=== PATIENT | female | born 1990 | race African-American/Black ===

== ENCOUNTER 2021-03-03 10:15 | Inpatient (IN) | payer BC, OTHER ==
[2021-03-03] MEDS ORDERED: LABETALOL HCL 200 MG TABLET (FP) ONE (13:52)
[2021-03-03 14:14] VITALS: BMI 48.0
[2021-03-03] MEDS ORDERED: ELECTROLYTE-148 SOLN 500 ML IV ONE ×2 (14:36→14:39)
[2021-03-03] MEDS ORDERED: CITRIC ACID/SODIUM CITRATE 30 ML UNIT-DOSE CUP PO ONE ×2 (14:36→14:38)
[2021-03-03] MEDS ORDERED: LABETALOL HCL 200 MG TABLET (FP) PO ONE (14:44)
[2021-03-03] MEDS ORDERED: ELECTROLYTE-148 SOLN 1,000 ML IV SCH (14:45)
[2021-03-03] MEDS ORDERED: morphine SULFATE/PF 0.5 MG/ML (2cc Syringe - QUVA) ONE (15:45)
[2021-03-03] MEDS ORDERED: ePHEDrine SULFATE 50 MG/1 ML AMPULE ONE (15:45)
[2021-03-03] MEDS ORDERED: SUCCINYLCHOLINE CHLORIDE 200 MG/10 ML SYRINGE ONE (15:46)
[2021-03-03] MEDS ORDERED: PROPOFOL 20 ML ONE (15:46)
[2021-03-03] MEDS ORDERED: OXYTOCIN 10 UNITS/ML VIAL ONE (16:35)
[2021-03-03] MEDS ORDERED: ONDANSETRON 4 MG/2 ML VIAL ONE (16:35)
[2021-03-03] MEDS ORDERED: KETOROLAC TROMETHAMINE 30 MG/1 ML VIAL ONE (16:35)
[2021-03-03] MEDS ORDERED: OXYTOCIN 20 UNITS in 0.9% NS 20 UNIT/1,000 ML INFUS.BAG IV ONE (17:32)
[2021-03-03] MEDS ORDERED: METHYLERGONOVINE MALEATE 0.2 MG/1 ML AMP IM PRN (17:52)
[2021-03-03] MEDS ORDERED: SENNOSIDES/DOCUSATE COMBO (SENNA PLUS) TABLET (UD) PO PRN (17:52)
[2021-03-03] MEDS ORDERED: oxyCODONE HCL 5 MG TABLET PO PRN (17:52)
[2021-03-03] MEDS ORDERED: OXYTOCIN 20 UNITS in 0.9% NS 20 UNIT/1,000 ML INFUS.BAG IV SCH (18:00)
[2021-03-03] MEDS ORDERED: IBUPROFEN 800 MG/8 ML IJ IVPB ONE (19:07)
[2021-03-03] MEDS: IBUPROFEN 800 MG/8 ML IJ IVPB PRN (19:12)
[2021-03-03] MEDS: LABETALOL HCL 200 MG TABLET (FP) PO SCH (21:40)
[2021-03-04] MEDS: IBUPROFEN 800 MG/8 ML IJ IVPB PRN (08:53)
[2021-03-04 09:59] LABS: BASO % 0.5 % (0-2.0); EOS % 0.8 % (0-4.5); HEMATOCRIT 26.6 % (32.4-45.2); HEMOGLOBIN 8.7 GM/dL (10.7-15.3); LYMPH % 13.6 % (8-40); MCH 27.3 pg (25.7-33.7); MCHC 32.8 g/dl (32.0-36.0); MEAN CELL VOLUME 83.5 fl (80-96); MEAN PLT VOLUME 8.5 fl (7.5-11.1); MONO % 6.3 % (3.8-10.2); NEUT % 78.8 % (42.8-82.8); PLATELET COUNT 305 K/MM3 (134-434); RBC 3.19 M/mm3 (3.60-5.2); RDW 17.1 % (11.6-15.6); WHITE BLOOD COUNT 11.8 K/mm3 (4.0-10.0)
[2021-03-04] MEDS: LABETALOL HCL 200 MG TABLET (FP) PO SCH ×2 (10:12→21:42)
[2021-03-04] MEDS: PRENATAL VITAMINS W/ FOLIC ACID TABLET (FP) PO SCH (10:12)
[2021-03-04] MEDS: ACETAMINOPHEN 325 MG TABLET (FP) PO PRN (16:54)
[2021-03-04] MEDS: SIMETHICONE 80 MG TAB.CHEW (FP) PO PRN (16:54)
[2021-03-04] MEDS: IBUPROFEN 600 MG TABLET (FP) PO PRN (16:54)
[2021-03-04] MEDS ORDERED: BISACODYL 10 MG SUPP.RECT RC PRN (17:52)
[2021-03-04] MEDS: oxyCODONE HCL 5 MG TABLET PO PRN (20:20)
[2021-03-05] MEDS: oxyCODONE HCL 5 MG TABLET PO PRN (02:22)
[2021-03-05] MEDS: IBUPROFEN 600 MG TABLET (FP) PO PRN ×2 (06:19→13:47)
[2021-03-05] MEDS: ACETAMINOPHEN 325 MG TABLET (FP) PO PRN ×2 (06:19→13:48)
[2021-03-05] MEDS: SIMETHICONE 80 MG TAB.CHEW (FP) PO PRN ×2 (06:20→13:47)
[2021-03-05 08:40] VITALS: BP 145/92; PULSE 101; TEMP 98.4
[2021-03-05] MEDS: LABETALOL HCL 200 MG TABLET (FP) PO SCH (09:49)
[2021-03-05] MEDS: PRENATAL VITAMINS W/ FOLIC ACID TABLET (FP) PO SCH (09:49)
== END 2021-03-05 16:30 | disposition home or self-care (01) | DRG 786 ==
LOC: JLDR 10:15 → J3W 20:11
PROVIDERS: ADMIT Obstetrics & Gynecology; ATTEND Obstetrics & Gynecology
PROC: 10D00Z1 Extraction of Products of Conception, Low, Open Approach (ICD-10-PCS; principal; 2021-03-03)
DX: O10.92 Unspecified pre-existing hypertension complicating childbirth (principal); K83.1 Obstruction of bile duct; O26.62 Liver and biliary tract disorders in childbirth; O98.32 Other infections with a predominantly sexual mode of transmission complicating childbirth; A60.00 Herpesviral infection of urogenital system, unspecified; O69.89X0 Labor and delivery complicated by other cord complications, not applicable or unspecified; O99.02 Anemia complicating childbirth; D64.9 Anemia, unspecified; Z3A.38 38 weeks gestation of pregnancy; Z37.0 Single live birth
CPT/HCPCS: 36415; 85025; 88307-TC

== ENCOUNTER 2021-03-11 19:06 | Emergency (ER) | payer BC, OTHER ==
[2021-03-11 19:14] VITALS: BP 153/89; PULSE 88; TEMP 98.7; BMI 44.8
[2021-03-11 20:26] LABS: EPI CELLS 13 /uL (0-25.1); HYALINE CASTS 6 /uL (0-3.1); PH,URINE 5.5 (5.0-8.0); URINE APPEARANCE CLOUDY; URINE BACTERIA 1100 /uL (0-1359); URINE BILIRUBIN NEGATIVE (NEGATIVE); URINE COLOR YELLOW; URINE GLUCOSE (UA) NEGATIVE (NEGATIVE); URINE KETONE NEGATIVE (NEGATIVE); URINE LEUK ESTERASE 2+ (NEGATIVE); URINE NITRITE NEGATIVE (NEGATIVE); URINE PROTEIN NEGATIVE (NEGATIVE); URINE RBC 43 /uL (0-23.9); URINE WBC 217 /uL (0-25.8)
== END 2021-03-11 20:47 | disposition home or self-care (01) ==
LOC: JER 19:06
DX: N39.0 Urinary tract infection, site not specified (principal); R31.9 Hematuria, unspecified; N30.00 Acute cystitis without hematuria
CPT/HCPCS: 81003; 87070; 87086; 87186; 87205; 99284-25

== ENCOUNTER 2022-09-25 11:55 | Emergency (ER) | payer OTHER ==
[2022-09-25 12:11] VITALS: BP 125/83; PULSE 87; RESP 18; TEMP 98; BMI 40.4
[2022-09-25] MEDS ORDERED: ACETAMINOPHEN 500 MG TABLET (FP) PO ONE (13:16)
[2022-09-25] MEDS ORDERED: ACETAMINOPHEN 500 MG TABLET (FP) ONE (13:30)
[2022-09-25 13:33] LABS: BASO % 0.7 % (0-2.0); EOS % 1.3 % (0-4.5); HEMATOCRIT 35.5 % (32.4-45.2); HEMOGLOBIN 11.9 GM/dL (10.7-15.3); MCH 30.1 pg (25.7-33.7); MCHC 33.6 g/dl (32.0-36.0); MEAN CELL VOLUME 89.6 fl (80-96); MEAN PLT VOLUME 8.2 fl (7.5-11.1); MONO % 4.6 % (3.8-10.2); NEUT % 60.4 % (42.8-82.8); PLATELET COUNT 274 10^3/uL (134-434); RBC 3.96 M/mm3 (3.60-5.2); WHITE BLOOD COUNT 6.8 K/mm3 (4.0-10.0)
[2022-09-25 13:43] LABS: INR 0.97 (0.83-1.09); PROTHROMBIN TIME (PATIENT) 11.1 SEC (9.7-13.0)
[2022-09-25 13:53] LABS: CHLORIDE 108 mmol/L (98-107); SODIUM 143 mmol/L (136-145)
[2022-09-25 13:55] LABS: CALCIUM 8.4 mg/dL (8.5-10.1)
[2022-09-25 13:56] LABS: ALBUMIN 3.4 g/dl (3.4-5.0); ANION GAP 6 MMOL/L (8-16); BLOOD UREA NITROGEN 12.8 mg/dL (7-18); CO2 29 mmol/L (21-32); GLUCOSE,RANDOM 89 mg/dL (74-106)
[2022-09-25 13:59] LABS: CREATININE 0.8 mg/dL (0.55-1.3); SGOT/AST 20 U/L (15-37); SGPT/ALT 19 U/L (13-61)
[2022-09-25 14:00] LABS: BILIRUBIN,TOTAL 0.3 mg/dL (0.2-1)
[2022-09-25 14:02] LABS: ALK PHOS 58 U/L (45-117)
[2022-09-25 14:26] LABS: EPI CELLS 18 /uL (0-25.1); HYALINE CASTS 0 /uL (0-3.1); URINE APPEARANCE CLEAR; URINE BACTERIA 176 /uL (0-1359); URINE BILIRUBIN NEGATIVE (NEGATIVE); URINE COLOR YELLOW; URINE GLUCOSE (UA) NEGATIVE (NEGATIVE); URINE KETONE TRACE (NEGATIVE); URINE LEUK ESTERASE NEGATIVE (NEGATIVE); URINE NITRITE NEGATIVE (NEGATIVE); URINE PROTEIN NEGATIVE (NEGATIVE); URINE RBC 163 /uL (0-23.9); URINE WBC 6 /uL (0-25.8)
== END 2022-09-25 15:52 | disposition home or self-care (01) ==
LOC: JER 11:55
DX: N83.202 Unspecified ovarian cyst, left side (principal)
CPT/HCPCS: 36415; 76817-TC; 80053; 81003; 84702; 85025; 85610; 86850; 86900; 86901; 87086; 87491; 87591; 99284-25